=== PATIENT | male | born 1955 | race Caucasian/White ===

== ENCOUNTER → 2016-09-05 | Outpatient (CLI) | payer BC ==
[~2016-09-05] MED LIST: AMBIEN PO; FINASTERIDE5 M1 PO; FISH OIL 1,0001 CA2 PO; FLOMAX0.4 M1 PO; NIACIN PO; NIACIN250 M1 PO; PHENERGAN PO; PROBIOTIC1 EAC1 PO; TYLOX1 CAP 5/50 PO; VICODIN 5/1 TAB 5/50 PO
--- NOTE | ~2016-09-05 | CR7 ---
[facility] A Service of [facility] RADIOLOGY TEXT RESULTS PATIENT: ALON METZ LOCATION: [facility] : 59 UNIT #: [id number] AGE: [address]: Heron Bernal MD SEX: M ORDER DR: [id number] [facility]. [place], [place] [address] [id number] MR#: [id number] Acc #: [id number] NAME: ALON METZ : 1955 SEX: M STUDY DATE/TIME: 09/05/2016 15:29 UNIT: [facility] ROOM: STUDY DESCRIPTION: CR Abdomen Single AP View Attending Physician: Heron Bernal M.D. Referring Physician: Heron Bernal M.D. Ordering Physician: Heron Bernal M.D. Primary Care Physician: Robert Hopper M.D. MEDICAL IMAGING REPORT This report is preliminary unless electronic signature is present EXAM Supine radiograph of the abdomen HISTORY Kidney stones. Abdomen pain began 6 months ago. History of bilateral kidney. Bladder stones. FINDINGS Two supine radiographs of the abdomen are presented. HISTORY Bilateral kidney bladder stones. Comparison to plain radiographs of 03/06/[address] examination 09/14/2015. FINDINGS No acute-appearing bony abnormality. The bowel gas pattern is normal. Bilateral renal calculi. Largest on the right in the lower pole measuring approximately 7 millimeters. Similar appearance on prior plain radiograph 03/06/2016. Largest on the left is in the mid to upper pole measuring about 5-6 mm. Similar appearance on prior examination. Two calcifications in the lateral inferior right pelvis are phleboliths on basis of prior CT examination. A calcification superimposed over the right superolateral aspect of urinary bladder probably corresponds to a bladder calculus seen on prior CT examination 09/14/2015. I do not clearly see new pelvic calcifications. No definite calcifications along the anticipated course of the bilateral ureters. If further imaging evaluation of kidneys, ureters and urinary bladder would assist in management at this time, consider CT. There is no free air. Dictated by... [facility] A Service of [facility] RADIOLOGY TEXT RESULTS PATIENT: ALON METZ LOCATION: [facility] #: [id number] : 59 UNIT #: [id number] AGE: [address]: Heron Bernal MD SEX: M ORDER DR: Spencer Vega M.D. THIS IS AN ELECTRONICALLY VERIFIED REPORT Spencer Vega M.D. at 09/06/2016 2:37 PM Shannan TD: 09/05/2016 22:54 JOB #: [id number] MEDICAL IMAGING REPORT Page 1 of 1 COPY
== END | disposition home or self-care (01) ==
LOC: CRAD 15:14
DX: N20.0 Calculus of kidney (principal)
CPT/HCPCS: 74000